=== PATIENT | female | born 2000 | race African-American/Black ===

== ENCOUNTER 2021-05-29 21:04 | Emergency (ER) | payer OTHER ==
[~2021-05-29] VITALS: Ht 167.6 cm; Wt 57.2 kg
[2021-05-29 21:38] VITALS: BP 134/100
--- NOTE | 2021-05-29 21:38 | NUR ---
BIBS FROM HOME C/O CHIN PAIN +LAC, R KNEE/ELBOW PAIN S/P "FALLING OFF SCOOTER LANDING ON CHIN" -KO -HEADTRUAMA TDAP UTD. PT A/OX4. TOLERATING R/A WELL WITH NO SOB.
[2021-05-29] MEDS ORDERED: LIDOCAINE 2% 20 ML MDV ONE (21:58)
[2021-05-29] MEDS ORDERED: LIDOCAINE 1% INJ 50 ML MDV IJ ONE (22:00)
[2021-05-29] MEDS ORDERED: TDAP [DIPH/PERTUSSIS/TET] 0.5 ML VIAL IM ONE ×2 (22:46→23:00)
[2021-05-29] MEDS ORDERED: IBUP-1953 PO (22:47)
[2021-05-29] MEDS ORDERED: CYCL5TAB PO (22:48)
== END 2021-05-29 23:15 | disposition home or self-care (01) ==
LOC: ER 21:09
DX: S01.81XA Laceration without foreign body of other part of head, initial encounter (principal); J45.909 Unspecified asthma, uncomplicated; V00.141A Fall from scooter (nonmotorized), initial encounter; Y93.I9 Activity, other involving external motion; Y92.89 Other specified places as the place of occurrence of the external cause; Y99.8 Other external cause status
CPT/HCPCS: 12011; 90471; 90715; 99283; A6403; J3490